=== PATIENT | female | born 1980 | race Caucasian/White ===

== ENCOUNTER 2017-11-15 07:49 | Inpatient (IN) | payer BC ==
[2017-11-15] MEDS ORDERED: ceFOXitin 2 GM IVPREMIX* 2 GM/50 ML BAG ONE (09:30)
[2017-11-15] MEDS ORDERED: Sodium Citrate/Citric Acid* 15 ML UDC ONE (09:30)
[2017-11-15] MEDS ORDERED: ceFOXitin 2 GM IVPREMIX* 2 GM/50 ML BAG IVPB ONE (10:32)
[2017-11-15] MEDS ORDERED: OXYTOCIN* 10 UNITS/ML 1 ML VIAL ONE (10:53)
[2017-11-15] MEDS ORDERED: Morphine PF AMP (0.5MG/ML)* 5 MG/10 ML AMP ONE (10:53)
[2017-11-15] MEDS ORDERED: Naloxone* 0.4 MG/ML 1 ML VIAL IV PRN (11:53)
[2017-11-15] MEDS ORDERED: oxyCODONE/Acetamin 5/325 MG* TAB PO PRN ×2 (11:53→21:57)
[2017-11-15] MEDS ORDERED: Ondansetron INJ* 2 MG/ML VIAL IV PRN (11:53)
[2017-11-15] MEDS ORDERED: Nalbuphine* 20 MG/ML 1 ML VIAL IV PRN (11:53)
[2017-11-15] MEDS ORDERED: Phenylephrine IV* 40 MCG/ML 10 ML SYRINGE ONE (11:57)
[2017-11-15] MEDS: Ibuprofen TAB* 400 MG PO SCH ×2 (14:17→20:43)
[2017-11-15] MEDS ORDERED: Witch Hazel PAD* JAR TOPICAL PRN (21:57)
[2017-11-15] MEDS ORDERED: Glycerin ADULT SUPP PR PRN (21:57)
[2017-11-15] MEDS ORDERED: Dibucaine 1% 28.35 GM TUBE PR PRN (21:57)
[2017-11-15] MEDS ORDERED: Zolpidem TAB* 5 MG PO PRN (21:57)
[2017-11-15] MEDS ORDERED: Acetaminophen TAB* 325 MG PO PRN (21:57)
[2017-11-16] MEDS: Ibuprofen TAB* 400 MG PO SCH ×2 (03:36→03:44)
[2017-11-16] MEDS: Ferrous Gluconate TAB* 324 MG TAB PO SCH ×2 (09:00→22:26)
[2017-11-16] MEDS ORDERED: ZANTAC PO SCH (09:00)
[2017-11-16] MEDS ORDERED: Sertraline* 25 MG TAB PO SCH (09:00)
[2017-11-16] MEDS ORDERED: PATANOL BOTH EYES SCH (09:00)
[2017-11-16] MEDS: Docusate CAP* 100 MG PO SCH ×3 (09:14→22:25)
[2017-11-16] MEDS: Simethicone TAB* 80 MG TAB.CHEW PO SCH ×4 (09:14→22:25)
[2017-11-16] MEDS: Ibuprofen TAB* 600 MG PO PRN ×3 (09:15→22:25)
[2017-11-16] MEDS: MONTELUKAST SODIUM 10 MG PO SCH (09:18)
[2017-11-16 10:50] LABS: ABS Basophils 0.1 10^3/ul (0-0.2); ABS Eosinophils 0.1 10^3/ul (0-0.6); ABS Lymphocytes 1.8 10^3/ul (1.0-4.8); ABS Neutrophils 12.2 10^3/ul (1.5-7.7); ABS Nucleated RBC 0.01 10^3/ul; Eosinophil % 0.6 % (0-6); Hematocrit 33 % (35-47); Hemoglobin 11.3 g/dl (12.0-16.0); Lymphocyte % 11.8 % (25-47); Mean Corpuscular HGB Conc 34 g/dl (31-36); Mean Corpuscular Hemoglobin 30 pg (27-31); Mean Corpuscular Volume 86 fL (80-97); Mean Platelet Volume 8 um3 (7.4-10.4); Nucleated Red Blood Cells % 0.1; Platelet Count 188 10^3/ul (150-450); Red Blood Count 3.84 10^6/ul (4.0-5.4); Red Cell Distribution Width 19 % (10.5-15); White Blood Count 15.1 10^3/ul (3.5-10.8)
[2017-11-16] MEDS: oxyCODONE/Acetamin 5/325 MG* TAB PO PRN (12:28)
[2017-11-16] MEDS: CROMOLYN 4% BOTH EYES SCH ×2 (21:14→21:15)
[2017-11-16] MEDS: RANITIDINE 150 MG PO SCH (21:15)
[2017-11-16] MEDS: diPHENhydraMINE PO* 50 MG PO SCH (21:16)
[2017-11-17] MEDS: oxyCODONE/Acetamin 5/325 MG* TAB PO PRN ×4 (01:52→17:45)
[2017-11-17] MEDS: Docusate CAP* 100 MG PO SCH ×3 (07:56→20:56)
[2017-11-17] MEDS: Ibuprofen TAB* 600 MG PO PRN ×3 (07:56→20:56)
[2017-11-17] MEDS: Simethicone TAB* 80 MG TAB.CHEW PO SCH ×4 (07:56→20:56)
[2017-11-17] MEDS: Ferrous Gluconate TAB* 324 MG TAB PO SCH (09:00)
[2017-11-17] MEDS: CROMOLYN 4% BOTH EYES SCH ×2 (18:20→20:56)
[2017-11-17] MEDS: MONTELUKAST SODIUM 10 MG PO SCH (18:20)
[2017-11-17] MEDS: RANITIDINE 150 MG PO SCH ×2 (18:21→20:03)
[2017-11-17] MEDS: SERTRALINE 50 MG PO SCH (18:21)
[2017-11-17] MEDS: diPHENhydraMINE PO* 50 MG PO SCH (20:02)
[2017-11-18] MEDS: Ibuprofen TAB* 600 MG PO PRN ×2 (03:37→10:24)
[2017-11-18 07:23] VITALS: BP 116/61
[2017-11-18] MEDS: Simethicone TAB* 80 MG TAB.CHEW PO SCH (08:52)
[2017-11-18] MEDS: Docusate CAP* 100 MG PO SCH (08:52)
[2017-11-18] MEDS ORDERED: Olopatadine 0.1% OPHTH (NF) 1 DROP BTL BOTH EYES SCH (09:00)
[2017-11-18] MEDS: MONTELUKAST SODIUM 10 MG PO SCH (10:15)
[2017-11-18] MEDS: CROMOLYN 4% BOTH EYES SCH (10:15)
[2017-11-18] MEDS: RANITIDINE 150 MG PO SCH (10:16)
[2017-11-18] MEDS: SERTRALINE 50 MG PO SCH (10:16)
--- NOTE | 2017-11-22 13:59 | OP ---
OPERATIVE REPORT: DATE OF OPERATION: 11/15/17 DATE OF : 84 SURGEON: Luiz Florian MD VENTILATING EXPERT SURGEON: Dr. Hinton. ANESTHESIA: Spinal. PRE-OP DIAGNOSIS: at 39 weeks, estimated gestational age with a prior section. POST-OP DIAGNOSIS: at 39 weeks, estimated gestational age with a prior section. OPERATIVE PROCEDURE: Repeat low transverse section with delivery of the infant's head with a vacuum assistance. ESTIMATED BLOOD LOSS: 600 cc. SPECIMEN SENT TO PATHOLOGY: Cord blood. FLUIDS: She received 1600 cc of IV crystalloid fluid. URINE OUTPUT: 600 cc of clear urine. FINDINGS: Delivery of a male infant weighing 8 pounds 3 ounces with Apgars of 9 and 9. Normal uteru s, adnexa, bowel and bladder, and there were no complications. DESCRIPTION OF PROCEDURE: The patient was taken to the operating room where she was identified. She was placed on the operating room table where a spinal anesthetic was obtained without difficulty. S he was then placed in a supine position with a leftward tilt, prepped and draped in a normal sterile fashion. A Pfannenstiel skin incision was made with a knife and carried through to the underlying la lino of fascia. The fascia was nicked in the midline and extended laterally with curved Krueger scissors . The fascia was grasped superiorly and inferiorly with Vanesa clamps and dissected off sharply from the rectus muscle. The rectus muscle was in the midline bluntly. Peritoneum was identifie d, grasped with pickups, and entered sharply with Metzenbaum scissors. Peritoneum was then extended superiorly and inferiorly with Metzenbaum scissors. A bladder blade was inserted into the patient's abdomen. A bladder flap was created using Metzenbaum scissors over which the bladder blade was then reinserted. A low transverse uterine incision was made with a knife and extended laterally with band age scissors. The amniotic sac was ruptured and fluid was noted to be clear. The 's head was t hen grasped. I was unable to deliver the head manually due to slight asynclitism and then I was able to push the head up through the incision. Vacuum was placed in the infant's head and the head was th en delivered atraumatically with vacuum assistance. The rest of the infants body was then delivered. The cord was clamped and cut. The infant was then handed off to awaiting credit collection associate. Cord blood s were obtained. The placenta was removed manually. The uterus was exteriorized, cleared off all cl ot and debris using moist laparotomy sponges. The uterine incision was then closed using 0 Polysorb suture in a running locked fashion with a second imbricating layer of 0 Polysorb suture with good hem ostasis noted. The uterus was returned to the patient's abdomen. The gutters were then cleared off all clot and debris using moist laparotomy sponges. Sponges were removed from the patient's abdomen a s well as instruments, instrument count x1, rest within normal limits. At this point, I proceeded to close the peritoneum with 3-0 Polysorb suture in a running fashion. The fascia was closed using 0 P olysorb suture in a running fashion and the skin was closed with 4-0 Monocryl subcuticular stitch. Lolis shay tolerated the procedure well. Sponge, lap, and needle counts were correct x2. She was then t ransferred to the recovery room area in stable condition. [id number]/[facility] #: [id number]
== END 2017-11-18 12:15 | disposition home or self-care (01) | DRG 540 ==
LOC: MCHOB 07:49
PROVIDERS: ADMIT Obstetrics & Gynecology; ATTEND Obstetrics & Gynecology
PROC: 4A1HXCZ Monitoring of Products of Conception, Cardiac Rate, External Approach (ICD-10-PCS; 2017-11-15)
PROC: 10D00Z1 Extraction of Products of Conception, Low, Open Approach (ICD-10-PCS; principal; 2017-11-15 10:45)
DX: O34.211 Maternal care for low transverse scar from previous cesarean delivery (principal); F32.9 Major depressive disorder, single episode, unspecified; Z3A.39 39 weeks gestation of pregnancy; Z37.0 Single live birth; J45.909 Unspecified asthma, uncomplicated; O99.52 Diseases of the respiratory system complicating childbirth; R22.9 Localized swelling, mass and lump, unspecified; O99.344 Other mental disorders complicating childbirth; F41.9 Anxiety disorder, unspecified
CPT/HCPCS: 36415; 85025; A9270-GY; J0694; J2300; J2590